=== PATIENT | female | born 1990 | race Caucasian/White ===

== ENCOUNTER → 2020-09-03 | Outpatient (CLI) | payer OTHER | LOC: KOH-I 15:43 | DX: E04.1 Nontoxic single thyroid nodule (principal); E04.2 Nontoxic multinodular goiter | CPT/HCPCS: 76536 ==

== ENCOUNTER 2021-11-09 05:16 | Inpatient (IN) | payer OTHER ==
[~2021-11-09] VITALS: Ht 162.6 cm; Wt 107.5 kg
[2021-11-09 06:21] LABS: HEMOGLOBIN 11.7 gm/dl (12.3-15.3); RED BLOOD COUNT 3.87 M/UL (4.00-5.10); WHITE BLOOD COUNT 8.7 K/UL (4.5-11.0)
[2021-11-09 06:51] LABS: BUN/CREATININE RATIO 11 (0-10)
[2021-11-09] MEDS ORDERED: CITALOPRAM HBR20 MG PO (07:30)
[2021-11-09] MEDS ORDERED: IBUPROFEN600 MG PO (07:44)
[2021-11-09] MEDS ORDERED: COLACE 100MG C100 MG PO (07:44)
[2021-11-09] MEDS ORDERED: HYDROCODON-ACE1 EAC6 PO (07:44)
[2021-11-10 05:25] LABS: HEMOGLOBIN 11.4 gm/dl (12.3-15.3)
== END 2021-11-11 14:00 | disposition home or self-care (01) | DRG 788 ==
LOC: OB 05:16
PROVIDERS: ADMIT Obstetrics & Gynecology
PROC: 4A1HXCZ Monitoring of Products of Conception, Cardiac Rate, External Approach (ICD-10-PCS; 2021-11-09)
PROC: 3E0234Z Introduction of Serum, Toxoid and Vaccine into Muscle, Percutaneous Approach (ICD-10-PCS; 2021-11-09)
PROC: 10D00Z1 Extraction of Products of Conception, Low, Open Approach (ICD-10-PCS; principal; 2021-11-09 09:00)
DX: O13.4 Gestational [pregnancy-induced] hypertension without significant proteinuria, complicating childbirth (principal); O99.344 Other mental disorders complicating childbirth; Z3A.37 37 weeks gestation of pregnancy; Z20.822 Contact with and (suspected) exposure to COVID-19; Z37.0 Single live birth; F41.9 Anxiety disorder, unspecified; F32.A Depression, unspecified; Z28.310 Unvaccinated for COVID-19; Z82.49 Family history of ischemic heart disease and other diseases of the circulatory system; Z80.3 Family history of malignant neoplasm of breast; Z80.8 Family history of malignant neoplasm of other organs or systems; Z83.3 Family history of diabetes mellitus; Z90.49 Acquired absence of other specified parts of digestive tract; Z98.891 History of uterine scar from previous surgery; Z23 Encounter for immunization
CPT/HCPCS: 36415; 80053; 81001; 82800; 85014; 85018; 85025; 90715; C9113; J0690; J1885; J2274; J2370; J2405; J2590; J3010